=== PATIENT | female | born 1960 | race Caucasian/White ===

== ENCOUNTER 2024-01-27 10:15 | Outpatient (CLI) | payer MEDICAID | END 2024-01-27 23:59 | disposition home or self-care (01) | LOC: RAD 10:15 | PROVIDERS: ATTEND Physician Assistant Medical | DX: E04.2 Nontoxic multinodular goiter (principal) | CPT/HCPCS: 76536 ==

== ENCOUNTER 2024-04-17 08:11 | Outpatient (CLI) | payer MEDICAID | END 2024-04-17 23:59 | disposition home or self-care (01) | LOC: RAD 08:11 | PROVIDERS: ATTEND Internal Medicine Gastroenterology | DX: K80.20 Calculus of gallbladder without cholecystitis without obstruction (principal); R74.8 Abnormal levels of other serum enzymes | CPT/HCPCS: 76700 ==

== ENCOUNTER 2025-01-25 16:29 | Inpatient (IN) | payer MEDICAID ==
[~2025-01-25] VITALS: Ht 170.2 cm; Wt 73.6 kg
--- NOTE | 2025-01-25 16:48 | ELECTROCARDIOGRAPH REPORT ---
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 Dilip Ivan Measurements Intervals [place] Rate: 108 P: 0 NH: 0 QRS: -34 QRSD: 122 T: 47 QT: 390 QTc: 523 Interpretive Statements Atrial fibrillation Left bundle branch block Baseline wander in lead(s) V5 Electronically Signed On 01-25-2025 17:20:[address] Dilip Ivan Please click the below link to view image of tracing.
--- NOTE | 2025-01-25 17:09 | Physician Documentation ---
History of Present Illness ~ Chief Complaint: Irregular Heartbeat Stated Complaint: AFIB Time Seen by MD: 17:08 HPI This is a 64-year-old female who was accepted as an ER to ER transfer from [facility]. She has a noted history of SVT and atrial fib. She presented to the emergency department today for tachycardia and lower abdominal pain with nausea. In the emergency department, she was found to initially have heart rates in the 200s, for which she was given adenosine 6 mg followed by adenosine 12 mg. This did reduce her heart rate to the 150s 160s in atrial fib. On arrival to [facility] ER, her HR is 90's afib. Diagnostic studies as follows: Limited ultrasound with the following impression cholelithiasis with gallbladder wall thickening. Recommend correlation with nuclear medicine for hepatobiliary study if there was concern for acute cholecystitis. Mildly dilated common bile duct correlation with MRCP as advised. Mild fullness of the right renal collecting system which was not visualized on the same day CT. Correlate with the urge to void. CT abdomen and pelvis with contrast with the following impression enlarged right ovary containing a 4.3 cm complex cystic lesion, which is suspicious for ovarian neoplasm. Further evaluation with pelvic ultrasound as advised. Cholelithiasis with trace pericholecystic fluid and dilatation of the common bile duct. Correlation with liver function tests is advised. Further evaluation with MRCP could be obtained to exclude choledocholithiasis, if indicated. Circumferential asymmetric urinary bladder wall thickening. While these findings could be related to chronic bladder outlet obstruction, cystoscopy epic correlation is advised to exclude underlying bladder neoplasm. Hepatic steatosis with probable developing cirrhosis and splenomegaly. Chest x-ray with the following impression: no acute disease Labs were remarkable for the following magnesium of 1.5. Negative troponin. Normal chemistries other than total bili of 1.9 and glucose of 252. Her enzymes are not elevated. Lipase is normal at 105. She was found to have an acute urinary tract infection. History of type 2 diabetes noted. Patient was given the following medications at [facility]: Adenosine 6 mg followed by adenosine 12 mg IV. Ondansetron 4 mg IV push x1. Magnesium sulfate 2 g. Diltiazem drip. Eliquis 10 mg orally x1. Metoprolol succinate 50 mg p.o. x1 ceftriaxone 1 g IV x1 three boluses of normal saline IV. Medication Reconciliation Allergies: Coded Allergies: apple (Verified Allergy, Unknown, 01/25/25) citric acid (Verified Allergy, Unknown, 01/25/25) strawberry (Verified Allergy, Unknown, 01/25/25) tomato (Verified Allergy, Unknown, 01/25/25) Review of Systems ROS As stated above in the HPI, otherwise all systems are reviewed and negative. Physical Exam Vital Signs: Temperature: 98.4, Source: Oral, Heart Rate: 117, Respiratory Ra te: 16, BP: 113/75, Pulse Oximetry: 99, Weight: 73.640 Oxygen Flow Rate: 0 Physical Exam General: Alert, no apparent distress. Neck: Full range of motion. Respiratory: Lungs clear, no respiratory distress. Chest: No accessory muscle use. Cardiovascular: Irregular rate and rhythm, no murmurs. Gastrointestinal: Soft, mildly TTP lower abd, nondistended. Bowels sounds present. Extremities: Normal range of motion, no deformity. Neurologic: Oriented x4. Psychiatric: Normal mood and affect. Skin: Normal color, warm and dry. No edema, no ecchymosis. Progress Results/Orders Results/Orders Orders - DAKOTA GONZALES NP Hospitalist (01/25/25 ) Vital Signs 01/25/25 16:54 Temp 98.4 Pulse 117 Resp 16 B/P (MAP) 113/75 Pulse Ox 99 O2 Flow Rate 0 Laboratory Tests Test 01/25/25 16:56 White Blood Count 13.8 H Red Blood Count 4.70 Hemoglobin 13.9 Hematocrit 41.5 Mean Corpuscular Volume 88.4 Mean Corpuscular Hemoglobin 29.7 Mean Corpuscular Hemoglobin Concent 33.6 Red Cell Distribution Width 14.9 H Platelet Count 176 Mean Platelet Volume 9.1 Neutrophils (%) (Auto) 70.1 Lymphocytes (%) (Auto) 18.7 L Monocytes (%) (Auto) 6.2 Eosinophils (%) (Auto) 4.6 Basophils (%) (Auto) 0.4 Neutrophils # (Auto) 9.7 H Lymphocytes # (Auto) 2.6 Monocytes # (Auto) 0.9 Eosinophils # (Auto) 0.6 Basophils # (Auto) 0.0 CBC Comment Chemistry Comments Medical Decision Making Differential Dx:Considerations: Include anxiety/panic attack, Include digoxin toxicity, Include electrolyte disorder, Include heart failure, Include hyperthyroidism, Include hyperventilation, Include hypoxia, Include pacemaker malfunction, Include pulmonary embolus, Include renal failure Additional Information This is a 64-year-old female who was accepted to this emergency department as a ER to ER transfer from [facility]. Evidently she presented to [facility] with palpitations and was found to have SVT/afib with rapid ventricular rate She was noting lower abdominal cramping, lower pelvic pressure with frequent diarrhea without blood for the past 4-5 days prior to her presentation to the emergency department. She also had noted a near syncopal episode, elevated heart rate, extreme weakness, and decreased appetite with intermittent nausea but no vomiting no fevers or chills. Stated a history of SVT that has required hospital treatment on 2-3 occasions. She is followed by Cardiology as an outpatient but reports normal exam with them recently. Her EKG when she presented to the hospital initially showed a heart rate in the 200s, SVT. [place] ER physician attempted cardioversion chemically with adenosine 6 mg which was ineffective followed by 12 mg. He noted that there was a obvious pause but HR did remain elevated at 150's to 160's in afib. Patient was felt to be appropriate for transfer to higher level of care and was accepted at [facility]. On arrival, HR in 90's and patient without complaints other than mildly lower abdominal/bladder pressure. Hospitalist contacted and kindly agreed to admit patient. Departure Time of Disposition: 17:38 Disposition: 09 ADMITTED INPATIENT Admitted to Inpatient Unit: yes, to hospitalist Impression: Primary Impression: Atrial fibrillation Additional Impression: Cholelithiasis Referrals: NO PRIMARY CARE PROVIDER (PCP) Signature Scribe Signature: no scribe Attestation: The note accurately reflects work and decisions made by me.Dakota Silva NP 01/25/25 17:40 DAKOTA GONZALES NP January 25, 2025 17:09
[2025-01-25 17:18] LABS: BASOPHILS % (AUTO) 0.4 % (0-1); EOSINOPHILS # (AUTO) 0.6 X10'3 (0-0.9); EOSINOPHILS % (AUTO) 4.6 % (0-6); HEMATOCRIT 41.5 % (35.0-45.0); HEMOGLOBIN 13.9 g/dl (12.0-16.0); LYMPHOCYTES # (AUTO) 2.6 X10'3 (1.1-4.8); LYMPHOCYTES % (AUTO) 18.7 % (21-51); MEAN CORPUSCULAR HEMOGLOBIN 29.7 PG (27.0-31.0); MEAN CORPUSCULAR HGB CONC 33.6 g/dL (33.0-36.5); MEAN CORPUSCULAR VOLUME 88.4 FL (78-98); MEAN PLATELET VOLUME 9.1 FL (7.4-10.4); MONOCYTES # (AUTO) 0.9 X10'3 (0-0.9); MONOCYTES % (AUTO) 6.2 % (2-12); NEUTROPHILS # (AUTO) 9.7 X10'3 (1.8-7.7); NEUTROPHILS % (AUTO) 70.1 % (42-75); PLATELET COUNT 176 X10'3 (140-440); RED CELL DISTRIBUTION WIDTH 14.9 % (11.5-14.5); WHITE BLOOD COUNT 13.8 X10'3 (4.5-11.0)
--- NOTE | 2025-01-25 17:26 | RADIOLOGY REPORT ---
CHEST RADIOGRAPH Indication: CP Technique: Single frontal view of the chest was obtained Comparison: None FINDINGS: Lines and Tubes: None Lungs: No focal consolidation. Pleura: No effusion. No pneumothorax. Cardiomediastinal contours: Unremarkable Bones: No acute osseous abnormality. IMPRESSION: 1. No acute cardiopulmonary disease.
[2025-01-25] MEDS ORDERED: potassium Cl 40MEQ/1/2NS 520ml 520 ML IV PRN (17:40)
[2025-01-25] MEDS ORDERED: magnesium hydroxide 30ml (MOM) UD suspension PO PRN (17:40)
[2025-01-25] MEDS ORDERED: mag hydrox/Alum hydrox/simeth 30ml oral suspension PO PRN (17:40)
[2025-01-25] MEDS ORDERED: magnesium sulf-water 4G/100mL 100 ML IV PRN (17:40)
[2025-01-25] MEDS ORDERED: magnesium sulf-water 2g/50mL 50 ML IV PRN (17:40)
[2025-01-25] MEDS ORDERED: potassium Cl 20 mEq SR tablet PO PRN ×2 (17:40)
[2025-01-25] MEDS ORDERED: acetaminophen 325mg tablet PO PRN (17:40)
[2025-01-25] MEDS ORDERED: ondansetron/PF 4mg/2ml inj IV PRN (17:40)
[2025-01-25 17:52] LABS: ALANINE AMINOTRANSFERASE 28 U/L (12-78); ALBUMIN 3.2 G/DL (3.4-5.0); ALBUMIN/GLOBULIN RATIO 0.9 (1.1-1.5); ALKALINE PHOSPHATASE 81 IU/L (46-116); ANION GAP 13 (8-16); ASPARTATE AMINO TRANSFERASE 19 U/L (10-37); BILIRUBIN,TOTAL 0.9 MG/DL (0.1-1.0); BLOOD UREA NITROGEN 14 MG/DL (7-18); BUN/CREATININE RATIO 17.5 (10.0-20.0); CHLORIDE 112 MMOL/L (99-107); GLUCOSE 189 MG/DL (70-104); POTASSIUM 3.9 MMOL/L (3.5-5.1); PRO BRAIN NATRIURETIC PEPTIDE 508 PG/ML (0-125); SODIUM 145 MMOL/L (135-145); TOTAL CARBON DIOXIDE 20.3 MMOL/L (24-32); TOTAL PROTEIN 6.6 G/DL (6.4-8.2); eCRCL 69 ML/MIN; eGFR 72 ML/MIN
--- NOTE | 2025-01-25 18:21 | HISTORY AND PHYSICAL ---
History & Physical Providers to CC ~ History of Present Illness Reason for Admit\Complaint: SVT- AFib RVR\ cholelithiasis History of Present Illness This is a 64-year-old female who was transferred from [facility] ED- the patient had a 3-4 day history of diarrhea and woke up today and felt significantly dizzy and was concerned and went to the ED and was discovered to be in SVT heart rate in the 200s and was given adenosine 6 mg followed by adenosine 12 mg heart rate came down the 150s to 160s and AFib the patient was given also 2 g of IV magnesium sulfate and 50 mg of metoprolol succinate p.o. x1 and 10 mg of Eliquis p.o. x1. The patient heart rate was in the 90s on arrival to ED at [facility]. Ultrasound of the abdomen demonstrated cholelithiasis with gallbladder wall thickening and recommendations for a HIDA scan for possible cholecystitis as well as a CT scan was obtained with the recommendations for an MRCP when I informed the patient I was going to order an MRCP the patient has informed me she has been evaluated for her gallbladder previously and does not want any further workup at this time and we will discuss any further workup with her primary care provider. The patient also has a enlarged right ovary with a complex ovarian cyst that is 4.[address] scan was recommendations of further workup for possible malignancy- the patient has informed me that she has been evaluated for the ovarian cyst in the outpatient setting and was informed that she does not have ovarian cancer. Interestingly the note currently her liver function tests and bilirubin are all normal on a CMP patient does [place] a [place] [address] with a normal% neutrophil of 70.1. I admitted the patient to PCU on a ehs teacher Eliquis will be started as the patient's Adiel Vasc two score is 3. Allergies: Coded Allergies: apple (Verified Allergy, Unknown, 01/25/25) citric acid (Verified Allergy, Unknown, 01/25/25) strawberry (Verified Allergy, Unknown, 01/25/25) tomato (Verified Allergy, Unknown, 01/25/25) Past Medical History Past Medical History Hypertension Iwr-ebctrhg-cxhjbqllp diabetes mellitus Cholelithiasis Complex right ovarian cyst Past Surgical History Surgical History Comment Left shoulder surgery Right knee arthroscope- meniscal tear Family History Family History: FH: hypertension FATHER Past Social History Social History Comment Patient denes history of smoking/ drinking alcohol nor any illicit drug use Full Code Status ROS ROS Except for positives in the HPI the rest of the 14 point review systems is negative Exam Vitals: Vital Signs Date Time Temp Pulse Resp B/P (MAP) Pulse Ox O2 Delivery O2 Flow Rate FiO2 01/25/25 17:45 01/25/25 16:54 98.4 117 16 99 0 General: Gen. No acute distress alert and oriented 4 Lungs clear to ascultation bilaterally, no wheezes rales or rhonchi appreciated Heart irregular rhythm no murmurs rubs or clicks noted Abdomen soft nontender bowel sounds are normoactive Lower extremities no clubbing cyanosis, nor edema appreciated bilaterally Diagnostic Data Last Recorded Lab Results: 01/25/25165501/25/251655 Advance Care Planning Advanced Care plannin - 30 Minutes Problems: (1) Atrial fibrillation Status: Acute Additional Plan # SVT- Converted AFib RVR with adenosine # AFib RVR- Currently rate controlled Adiel Vasc 2 score of 3- start apixaban for DVT and stroke prophylaxis Metoprolol tartrate 25 mg po bid. # cholelithiasis possible cholecystitis The patient does not want any further workup and will discuss with her primary care provider Bilirubin and liver function tests are all normal # large complex right ovarian cyst concerning for malignancy The patient has outpatient workup and informs me that she does not have cancer- the patient to follow up in the outpatient setting # hypertension- awaiting med reconciliation # [id number]-[id number] diabetes mellitus Hyper and hypoglycemic protocol # DVT prophylaxis SCDs and Eliquis I spent a total of 17 minutes on reviewing various resuscitative measures/ ACP with the patient at the time of admission. The patient has decided on full code status. Date of Service: January 25, 2025 Billing Provider: JUSTIN PHELPS DO Common Visit Codes: 84146-[id number] INP/OBS CARE (HIGH) Secondary Visit Codes: 75278-POOKAPEB CARE PLAN 30 MINUTES JUSTIN PHELPS DO January 25, 2025 18:21
[2025-01-25] MEDS ORDERED: glucagon, human recombinant 1mg kit SUBCUT PRN (18:30)
[2025-01-25] MEDS ORDERED: dextrose 50%-water 50ml dispensing syringe IV PRN ×2 (18:30)
[2025-01-25] MEDS ORDERED: DEXTROSE 15 GM of carb/4 tabs (each vial/BOTTLE has 4 tablets) PO PRN ×2 (18:30)
[2025-01-25 19:08] LABS: HEMOGLOBIN A1C 7.9 % (4.5-6.2)
[2025-01-25] MEDS: docusate sod 100mg capsule PO SCH (20:00)
[2025-01-25] MEDS ORDERED: enoxaparin 40mg/0.4ml syringe SQ SCH (20:00)
[2025-01-25] MEDS: K and/or MAG REPLACEMENT MC SCH (20:17)
[2025-01-25] MEDS ORDERED: METO-395 PO (20:27)
[2025-01-25] MEDS ORDERED: LISI10TA27 PO (20:27)
[2025-01-25] MEDS: metoprolol tartrate 25mg tablet PO ONE (20:41)
[2025-01-25] MEDS: apixaban 5mg tablet PO SCH (20:41)
[2025-01-25] MEDS: INSULIN LISPRO 100 UNIT/ML INSULN.PEN MULTI-DOSE SQ SCH (20:48)
[2025-01-25] MEDS ORDERED: INSU100I31 SQ (23:44)
[2025-01-25 23:55] VITALS: BP 102/57; PULSE 80; RESP 11; TEMP 98.2; O2SAT 96
[2025-01-25 23:58] VITALS: RESP 11; O2SAT 96
[2025-01-26 02:00] VITALS: BP 101/64; PULSE 75; RESP 19; TEMP 97.4; O2SAT 95
[2025-01-26 06:00] VITALS: BP 94/56; PULSE 75; RESP 16; TEMP 97.7; O2SAT 99
[2025-01-26 06:50] LABS: BASOPHILS # (AUTO) 0.1 X10'3 (0-0.2); BASOPHILS % (AUTO) 0.6 % (0-1); EOSINOPHILS # (AUTO) 0.5 X10'3 (0-0.9); EOSINOPHILS % (AUTO) 5.3 % (0-6); HEMOGLOBIN 11.7 g/dl (12.0-16.0); LYMPHOCYTES # (AUTO) 2.2 X10'3 (1.1-4.8); LYMPHOCYTES % (AUTO) 23.9 % (21-51); MEAN CORPUSCULAR HEMOGLOBIN 30.4 PG (27.0-31.0); MEAN CORPUSCULAR HGB CONC 34.6 g/dL (33.0-36.5); MONOCYTES # (AUTO) 0.7 X10'3 (0-0.9); MONOCYTES % (AUTO) 7.2 % (2-12); NEUTROPHILS # (AUTO) 5.7 X10'3 (1.8-7.7); PLATELET COUNT 120 X10'3 (140-440); RED BLOOD COUNT 3.86 X10'6 (4.20-5.60); RED CELL DISTRIBUTION WIDTH 14.6 % (11.5-14.5)
[2025-01-26 07:03] LABS: ALANINE AMINOTRANSFERASE 21 U/L (12-78); ALBUMIN 2.7 G/DL (3.4-5.0); ALBUMIN/GLOBULIN RATIO 0.9 (1.1-1.5); ALKALINE PHOSPHATASE 83 IU/L (46-116); ANION GAP 11 (8-16); ASPARTATE AMINO TRANSFERASE 14 U/L (10-37); BILIRUBIN,TOTAL 0.8 MG/DL (0.1-1.0); BLOOD UREA NITROGEN 12 MG/DL (7-18); BUN/CREATININE RATIO 16.4 (10.0-20.0); CALCIUM 8.2 MG/DL (8.5-10.1); CHLORIDE 113 MMOL/L (99-107); CREATININE 0.73 MG/DL (0.40-0.90); GLUCOSE 150 MG/DL (70-104); MAGNESIUM 1.9 MG/DL (1.5-2.4); POTASSIUM 3.6 MMOL/L (3.5-5.1); SODIUM 145 MMOL/L (135-145); TOTAL CARBON DIOXIDE 20.8 MMOL/L (24-32); TOTAL PROTEIN 5.7 G/DL (6.4-8.2); eCRCL 76 ML/MIN; eGFR 80 ML/MIN
[2025-01-26] MEDS ORDERED: APIX5TAB3 PO (10:13)
--- NOTE | 2025-01-26 17:31 | DISCHARGE SUMMARY ---
Discharge Summary Providers to CC ~ Discharge Summary Admission Diagnosis: SVT/ possible choledocholithiasis Hospital Course DATE OF ADMISSION: 01/25/2025 DATE OF DISCHARGE: 01/26/2025 Discharge Diagnosis\Comment: SVT, AFib RVR, cholelithiasis with possible cholecystitis, large complex right o varian cyst, hypertension, [id number] diabetes mellitus Operations\Procedures: None Consultants: None Complications: None Condition on DC: Stable New Medications: Apixaban (Eliquis) 5 Mg Tablet 5 MG PO BID, #60 TAB Continued Medications: Insulin Glargine,Hum.rec.anlog (Basaglar Kwikpen U-100) 100 Unit/Ml (3 Ml) Insuln.pen 5 UNITS SQ Lisinopril (Lisinopril) 10 Mg Tablet 1 TAB PO DAILY Metoprolol Succinate (Metoprolol Succinate) 25 Mg Tab.sr.24h 2 TAB PO DAILY Discharge Summary: I admitted the patient with the following HPI:This is a 64-year-old female who was transferred from [facility] ED- the patient had a 3-4 day history of diarrhea and woke up today and felt significantly dizzy and was concerned and went to the ED and was discovered to be in SVT heart rate in the 200s and was given adenosine 6 mg followed by adenosine 12 mg heart rate came down the 150s to 160s and AFib the patient was given also 2 g of IV magnesium sulfate and 50 mg of metoprolol succinate p.o. x1 and 10 mg of Eliquis p.o. x1. The patient heart rate was in the 90s on arrival to ED at [facility]. Ultrasound of the abdomen demonstrated cholelithiasis with gallbladder wall thickening and recommendations for a HIDA scan for possible cholecystitis as well as a CT scan was obtained with the recommendations for an MRCP when I informed the patient I was going to order an MRCP the patient has informed me she has been evaluated for her gallbladder previously and does not want any further workup at this time and we will discuss any further workup with her primary care provider. The patient also has a enlarged right ovary with a complex ovarian cyst that is 4.[address] scan was recommendations of further workup for possible malignancy- the patient has informed me that she has been evaluated for the ovarian cyst in the outpatient setting and was informed that she does not have ovarian cancer. Interestingly the note currently her liver function tests and bilirubin are all normal on a CMP patient does [place] a [place] [address] with a normal% neutrophil of 70.1. I admitted the patient to PCU on a monitor tech Eliquis will be started as the patient's Adiel Vasc2 score is 3. The patient had no further episodes of tachycardia rapid atrial fibrillation once arriving on the PCU floor- the patient will remain on metoprolol succinate and lisinopril for hypertension. The patient was discharged with a prescription for Apixaban. Patient continues her insulin glargine patient's hemoglobin A1c is 7.9 likely need to adjust her insulin glargine dose. The patient wanted to be discharged as well she will continue or follow up in the outpatient setting in regards to her gallbladder disease and possible requirement for a cholecystectomy as well as monitoring her large right complex ovarian cyst. Gen. No acute distress alert and oriented 4 Lungs clear to ascultation bilaterally, no wheezes rales or rhonchi appreciated Heart normal sinus rhythm no murmurs rubs or clicks noted Abdomen soft nontender bowel sounds are normoactive Lower extremities no clubbing cyanosis, nor edema appreciated bilaterally The patient felt ready to be discharged and was medically cleared to be di scharged on 01/26/2025 The patient was seen and evaluated on day of discharge. Time spent on discharge 40 minutes *Problems/Diagnosis: (1) Atrial fibrillation Status: Acute Total Time Spent on D/C: > 30 Minutes Date of Service: January 26, 2025 Billing Provider: JUSTIN PHELPS DO Common Visit Codes: 72655-VMJ/OBS DISCH DAY >30min JUSTIN PHELPS DO January 26, 2025 17:31
== END 2025-01-26 12:05 | disposition home or self-care (01) | DRG 201 ==
LOC: ER 16:29 → ED HOLD 17:46 → PCU 3S 23:55
PROVIDERS: ADMIT Family Medicine; ATTEND Family Medicine
DX: I48.91 Unspecified atrial fibrillation (principal); E11.9 Type 2 diabetes mellitus without complications; I47.10 Supraventricular tachycardia, unspecified; I10 Essential (primary) hypertension; K80.20 Calculus of gallbladder without cholecystitis without obstruction; N83.291 Other ovarian cyst, right side; Z91.018 Allergy to other foods
CPT/HCPCS: 36415; 71045; 80053; 82948; 83036; 83735; 83880; 84484; 85025; 87081; 93005; 99285; G0378; J1815